=== PATIENT | male | born 1990 | race Two or more races ===

== ENCOUNTER 2017-12-29 23:14 | Emergency (ER) | payer OTHER ==
[~2017-12-29] VITALS: Ht 172.7 cm; Wt 70.3 kg
[2017-12-29] MEDS ORDERED: ZYNCOF 20-400120 ML (23:37)
[2017-12-30] MEDS ORDERED: ZITHROMAX500 MG PO (02:38)
[2017-12-30] MEDS ORDERED: ZANTAC300 MG PO (02:38)
[2017-12-30] MEDS ORDERED: BUTALB-ACETAMI1 EACH PO (02:38)
[2017-12-30] MEDS ORDERED: ZOFRAN4 MG PO (02:38)
== END 2017-12-30 02:54 | disposition home or self-care (01) ==
LOC: ER 23:14
DX: J35.01 Chronic tonsillitis (principal); K29.70 Gastritis, unspecified, without bleeding